=== PATIENT | female | born 1975 | race Caucasian/White ===

== ENCOUNTER 2017-05-03 14:15 | Observation (INO) | payer OTHER ==
[~2017-05-03] VITALS: Ht 165.1 cm; Wt 57.6 kg
[~2017-05-03 14:15] MED LIST: PARO1TAB27 PO; SULF800T23 PO
[2017-05-03] MEDS ORDERED: ASPIRIN 324 MG CHEW PO STA (14:34)
[2017-05-03] MEDS ORDERED: NITROGLYCERIN 2% OINTMENT 30GM TUBE EXT STA (14:34)
--- NOTE | 2017-05-03 14:40 | EMERGENCY ROOM VISIT NOTE ---
History First contact with patient: 14:21 Chief Complaint: CHEST PAIN Stated Complaint: TIGHTNESS IN CHEST, NASEAU Nursing Triage Summary: Pt presents with substernal cp into left arm since Fri. SOB with exertion. Denies lightheadedness. Denies cardiac hx. History of Present Illness The patient is a 42 year old female who presents to the Emergency Room with complaints of midsternal chest pain that has been intermittent for the last 5 days. The patient describes it as a "knot in the center of her chest." The patient also got short of breath while walking up a hill yesterday. She denies any history of cardiac disease. She does smoke approximately 1 pack per day. She does not take any control pills. No recent long travel. The patient' s otherwise been healthy. She denies any cough. She has had intermittent nausea. Patient also has a history of a panic disorder. She is uncertain if her symptoms are related to that. Her father had a heart attack at the age of 41. Review of Systems 10 system review performed and negative unless noted in HPI or below Past Medical/Surgical History Medical Problems: (1) Chest pain (2) Hypokalemia (3) Miscarriage (4) Shortness of breath (5) Shortness of breath Surgical Problems: (1) H/O tubal ligation Family History FH: breast cancer FH: colon cancer FH: coronary artery bypass surgery FH: diabetes mellitus FH: leukemia Social History Smoking Status: Current Every Day Smoker Alcohol Use: none Marital Status: single Occupation Status: unemployed Current/Historical Medications Scheduled Aspirin (Aspirin Ec), 81 MG PO DAILY Buspirone Hcl (Buspirone Hcl), 10 MG PO BID Hydroxyzine Pamoate (Vistaril), 25 MG PO HS Ibuprofen (Advil), 400 MG PO prn ud Levothyroxine Sodium (Synthroid), 125 MCG PO DAILY Paroxetine (Paxil), 30 MG PO DAILY Scheduled PRN Cyclobenzaprine Hcl (Flexeril), 10 MG PO HS PRN for SPASMS Indomethacin (Indocin), 50 MG PO TID PRN for Pain Ondansetron Hcl (Zofran), 8 MG PO Q8 PRN for Nausea Physical Exam Vital Signs Date Time Temp Pulse Resp B/P (MAP) Pulse Ox O2 Delivery O2 Flow Rate FiO2 05/03/17 16:21 86 16 125/83 97 Room Air 05/03/17 15:17 101 16 134/97 98 Room Air 05/03/17 15:05 89 05/03/17 14:18 36.9 110 18 165/103 99 Room Air Physical Exam VITALS: Vitals are noted on the nurse's note and reviewed by myself. Vital signs stable. GENERAL: 42-year-old female, in no acute distress, nondiaphoretic, well- developed well-nourished. SKIN: The skin was without rashes, erythema, edema, or bruising. HEAD: Normocephalic atraumatic. MOUTH: Mucous membranes moist. NECK: Supple without nuchal rigidity. No lymphadenopathy. Cervical spine is nontender. No JVD. HEART: Regular rate and rhythm without murmurs gallops or rubs. No tenderness over the thorax LUNGS: Clear to auscultation bilaterally without wheezes, rales or rhonchi. No accessory muscle use. ABDOMEN: Positive bowel sounds x 4.Soft, nontender, without organomegaly. No guarding or rebound tenderness. MUSCULOSKELETAL: No muscle atrophy, erythema, or edema noted. . Strength 5/5 throughout. NEURO: Patient was alert and oriented to person place and time. Normal sensation to touch. No focal neurological deficits. Medical Decision & Procedures ER Provider Diagnostic Interpretation: cxr IMPRESSION: No acute process. The above report was generated using voice recognition software. It may contain grammatical, syntax or spelling errors. Electronically signed by: Ld Campbell M.D. 05/03/2017 2:55 PM Dictated Date/Time: 05/03/2017 2:54 PM The status of this report is Signed. Draft = Not yet reviewed or approved by Radiologist. Signed = Reviewed and approved by Radiologist. Laboratory Results 05/03/17 14:30 Red Blood Count 4.59, Mean Corpuscular Volume 91.3, Mean Corpuscular Hemoglobin 30.9, Mean Corpuscular Hemoglobin Concent 33.9, Mean Platelet Volume 9.5, Neutrophils (%) (Auto) 74.2, Lymphocytes (%) (Auto) 17.8, Monocytes (%) (Auto) 5.9, Eosinophils (%) (Auto) 1.2, Basophils (%) (Auto) 0.5, Neutrophils # (Auto) 8.44, Lymphocytes # (Auto) 2.02, Monocytes # (Auto) 0.67, Eosinophils # (Auto) 0.14, Basophils # (Auto) 0.06 05/03/17 14:30 Test 05/03/17 14:30 05/03/17 14:34 05/03/17 14:45 05/03/17 15:45 White Blood Count 11.37 K/uL (4.8-10.8) Red Blood Count 4.59 M/uL (4.2-5.4) Hemoglobin 14.2 g/dL (12.0-16.0) Hematocrit 41.9 % (37-47) Mean Corpuscular Volume 91.3 fL (80-100) Mean Corpuscular Hemoglobin 30.9 pg (25-34) Mean Corpuscular Hemoglobin Concent 33.9 g/dl (32-36) Platelet Count 290 K/uL (130-400) Mean Platelet Volume 9.5 fL (7.4-10.4) Neutrophils (%) (Auto) 74.2 % Lymphocytes (%) (Auto) 17.8 % Monocytes (%) (Auto) 5.9 % Eosinophils (%) (Auto) 1.2 % Basophils (%) (Auto) 0.5 % Neutrophils # (Auto) 8.44 K/uL (1.4-6.5) Lymphocytes # (Auto) 2.02 K/uL (1.2-3.4) Monocytes # (Auto) 0.67 K/uL (0.11-0.59) Eosinophils # (Auto) 0.14 K/uL (0-0.5) Basophils # (Auto) 0.06 K/uL (0-0.2) RDW Standard Deviation 44.4 fL (36.4-46.3) RDW Coefficient of Variation 13.3 % (11.5-14.5) Immature Granulocyte % (Auto) 0.4 % Immature Granulocyte # (Auto) 0.04 K/uL (0.00-0.02) D-Dimer 290 ug/L FEU (0-500) Anion Gap 6.0 mmol/L (3-11) Est Creatinine Clear Calc Drug Dose 102.0 ml/min Estimated GFR () 126.7 Estimated GFR (Non- 109.3 BUN/Creatinine Ratio 11.1 (10-20) Calcium Level 9.1 mg/dl (8.5-10.1) Total Bilirubin 0.2 mg/dl (0.2-1) Aspartate Amino Transf (AST/SGOT) 11 U/L (15-37) Alanine Aminotransferase (ALT/SGPT) 18 U/L (12-78) Alkaline Phosphatase 87 U/L (45-117) Creatine Kinase MB < 0.5 ng/ml (0.5-3.6) Total Protein 8.2 gm/dl (6.4-8.2) Albumin 4.2 gm/dl (3.4-5.0) Globulin 4.0 gm/dl (2.5-4.0) Albumin/Globulin Ratio 1.0 (0.9-2) Thyroid Stimulating Hormone (TSH) 49.300 uIu/ml (0.300-4.500) Creatine Kinase MB Ratio (0-3.0) Urine Test NEG (NEG) Troponin I < 0.015 ng/ml (0-0.045) Medications Administered Medications (Trade) Dose Ordered Sig/Raya Route Start Time Stop Time Status Last Admin Dose Admin Nitroglycerin (Nitroglycerin 2% Oint) 1 inch ONE STAT EXT 05/03/17 14:34 05/03/17 14:37 DC 05/03/17 14:42 1 INCH Aspirin (Aspirin Chew) 324 mg NOW STAT PO 05/03/17 14:34 05/03/17 14:37 DC 05/03/17 14:42 324 MG Sodium Chloride 1,000 ml @ 999 mls/hr Q1H1M ONCE IV 05/03/17 15:45 05/03/17 16:45 DC 05/03/17 15:45 999 MLS/HR Potassium Chloride (Klor-Con M10) 40 meq NOW STAT PO 05/03/17 15:41 05/03/17 15:42 DC 05/03/17 15:41 40 MEQ ECG Per My Interpretation Indication: chest pain Rate (beats per minute): 103 Rhythm: sinus tachycardia ED Course Patient was seen and examined Vital signs including blood pressure were reviewed medications list was verified with patient Labs were obtained, and a saline lock was established The patient was given aspirin 324 mg by mouth. She was also given Nitropaste Imaging was performed and reviewed The patient was reassessed. The pain was unchanged. We discussed her workup. She voiced understanding. Case was also discussed with my supervising physician who is in agreement with my plan. I discussed the case with the outpatient case manager. It was then discussed with the [facility] hospitalist group, who agreed to observe the patient for further workup and treatment.. Medical Decision Differential diagnosis: Acute myocardial infarction, cardiac arrhythmia, anemia , thyroid abnormality, pneumothorax, pneumonia, bronchitis, pericarditis, electrolyte imbalance This patient is a 42-year-old female presents to the emergency department with dyspnea on exertion and chest pain. The patient does have risk factors including a family history and cigarette smoking in the emergency department, her troponin was negative. An EKG was performed. It shows sinus tachycardia. No signs of ischemia or infarction. Her d-dimer is negative. A PE is highly unlikely. The patient does have significant risk factors for cardiac disease; for this reason, the hospitalist service was consulted. She will be observed overnight for further workup and treatment This chart was completed in part utilizing [employer] Speech Voice Recognition software. Attempts were made to minimize the grammatical errors, random word insertions, pronoun errors and incomplete sentences. Any formal questions or concerns about the content, text or information contained within the body of this dictation should be directly addressed to the provider for clarification. Medication Reconcilliation Current Medication List: was personally reviewed by me Blood Pressure Screening Patient's blood pressure: Elevated blood pressure Blood pressure disposition: Did not require urgent referral Consults Consulting Physician: [facility] hospitalist Impression Primary Impression: Chest pain Departure Information Referrals Patricia Lua (PCP) Patient Instructions My [facility]
[2017-05-03 14:48] LABS: BASO % 0.5 %; BASO ABS # 0.06 K/uL (0-0.2); EOS % 1.2 %; EOS ABS # 0.14 K/uL (0-0.5); HEMATOCRIT 41.9 % (37-47); HEMOGLOBIN 14.2 g/dL (12.0-16.0); IG# 0.04 K/uL (0.00-0.02); LYMPH % 17.8 %; LYMPH ABS # 2.02 K/uL (1.2-3.4); MEAN CELL VOLUME 91.3 fL (80-100); MEAN CORPUSCULAR HEMOGLOBIN 30.9 pg (25-34); MEAN CORPUSCULAR HGB CONC 33.9 g/dl (32-36); MEAN PLATELET VOLUME 9.5 fL (7.4-10.4); MONO % 5.9 %; MONO ABS # 0.67 K/uL (0.11-0.59); NEUT % 74.2 %; NEUT ABS # 8.44 K/uL (1.4-6.5); PLATELET COUNT 290 K/uL (130-400); RED CELL DISTRIBUTION WIDTH CV 13.3 % (11.5-14.5); RED CELL DISTRIBUTION WIDTH SD 44.4 fL (36.4-46.3); WHITE BLOOD COUNT 11.37 K/uL (4.8-10.8)
--- NOTE | 2017-05-03 14:56 | DIAGNOSTIC IMAGING REPORT ---
CHEST ONE VIEW PORTABLE HISTORY: 42 years-old Female midsternal CP acute atypical chest pain, most pronounced within the mid sternal region COMPARISON: Chest radiograph 01/04/2013 TECHNIQUE: Portable AP view of the chest FINDINGS: Cardiomediastinal and hilar silhouettes are within normal limits. There is no pneumothorax, pleural effusion, focal airspace consolidation or overt pulmonary edema. Bones of the chest appear grossly intact. IMPRESSION: No acute process. The above report was generated using voice recognition software. It may contain grammatical, syntax or spelling errors. Electronically signed by: Ld Campbell M.D. 05/03/2017 2:55 PM Dictated Date/Time: 05/03/2017 2:54 PM
[2017-05-03 14:58] LABS: ALBUMIN 4.2 gm/dl (3.4-5.0); ALT/SGPT 18 U/L (12-78); BLOOD UREA NITROGEN 7 mg/dl (7-18); CALCIUM 9.1 mg/dl (8.5-10.1); CARBON DIOXIDE 27 mmol/L (21-32); CREATININE 0.64 mg/dl (0.60-1.20); GLUCOSE 105 mg/dl (70-99); POTASSIUM 3.1 mmol/L (3.5-5.1); SODIUM 139 mmol/L (136-145)
[2017-05-03 15:09] LABS: ALKALINE PHOSPHATASE 87 U/L (45-117); AST/SGOT 11 U/L (15-37); CKMB < 0.5 ng/ml (0.5-3.6); TOTAL PROTEIN 8.2 gm/dl (6.4-8.2)
[2017-05-03] MEDS ORDERED: POTASSIUM CHLORIDE 10 MEQ TABCR PO STA (15:41)
[2017-05-03] MEDS ORDERED: SODIUM CHLORIDE 0.9% 1000ML 1,000 ML IV ONE (15:45)
[2017-05-03] MEDS ORDERED: ASPI81TA28 PO (15:46)
[2017-05-03] MEDS ORDERED: PARO1TAB27 PO (15:46)
[2017-05-03] MEDS ORDERED: IBUP-1050 PO (15:46)
[2017-05-03] MEDS ORDERED: BUSP-8 PO (15:46)
[2017-05-03] MEDS ORDERED: LEVO125T72 PO (15:46)
[2017-05-03] MEDS ORDERED: NITROGLYCERIN 0.4 MG SL PER TAB CHARGE SL PRN (17:30)
[2017-05-03] MEDS ORDERED: ONDANSETRON INJ 2 MG/ML 2 ML VIAL IV PRN (17:30)
[2017-05-03] MEDS ORDERED: ACETAMINOPHEN 325 MG TAB PO PRN (17:30)
[2017-05-03] MEDS ORDERED: IV FLUIDS COMPLETED PRN (18:00)
[2017-05-03 18:10] VITALS: O2SAT 95; Ht 165.1 cm; Wt 57.6 kg
[2017-05-03 18:34] VITALS: BP 136/92; PULSE 84; TEMP 37; O2SAT 99
[2017-05-03 18:41] VITALS: O2SAT 98
--- NOTE | 2017-05-03 18:52 | History and Physical ---
History & Physical Date & Time of Service: May 03, 2017 ~ 17:00 Chief Complaint: Chest Tightness, Shortness of Breath Primary Care Physician: Patricia Lua History of Present Illness 42 year old female who presents to the ED with chest tightness and shortness of breath. Patient reports her symptoms began 6 days ago. Initially she was experiencing intermittent chest tightness. She denies any specific causative or alleviating factors. Yesterday while walking up a slight incline she became short of breath and had chest tightness. Symptoms persisted until today. She also had associated nausea. She denies diaphoresis and lightheadedness. She reports her symptoms are very similar to when she has a panic attack. She received topical nitro in the ED and does not think it made her feel any better but is currently symptom free. Patient is on levothyroxine and has self reduced / stopped this medication recently. She also self decreased her paroxetine dose because she felt like it was making her angry and irritable. She reports she otherwise has been feeling well recently. No abdominal pain, vomiting, or diarrhea. She denies fever and chills. No urinary symptoms. In the ED, initial troponin is negative and EKG does not show any acute ST changes. TSH is 49.0. Past Medical/Surgical History Medical Problems: (1) Anxiety Status: Chronic (2) Hypothyroidism Status: Chronic (3) Miscarriage Status: Resolved Surgical Problems: (1) H/O dilation and curettage Status: Chronic (2) H/O tubal ligation Status: Resolved (3) H/O tubal ligation Status: Chronic Family History FH: CAD (coronary artery disease) FATHER (NE at age 41 and CABG x 3) FH: breast cancer MOTHER ( at age 42) Social History Smoking Status: Current Every Day Smoker Alcohol Use: none Immunizations History of Influenza Vaccine: Yes Influenza Vaccine Date: Dec 09, 2016 History of Tetanus Vaccine?: Yes Tetanus Immunization Date: Oct 25, 2005 Allergies Coded Allergies: Tramadol (Verified Allergy, Mild, itching, 12/27/12) Gabapentin (Verified Adverse Reaction, Intermediate, " DEPRESSION", ) Home Medications Scheduled Buspirone Hcl (Buspirone Hcl), 10 MG PO BID Levothyroxine Sodium (Synthroid), 125 MCG PO DAILY Paroxetine (Paxil), 20 MG PO DAILY Scheduled PRN Cyclobenzaprine Hcl (Flexeril), 10 MG PO HS PRN for SPASMS Hydroxyzine Pamoate (Vistaril), 25 MG PO HS PRN for Insomnia Indomethacin (Indocin), 50 MG PO TID PRN for Pain Ondansetron Hcl (Zofran), 8 MG PO Q8 PRN for Nausea Miscellaneous Medications Ibuprofen (Advil), 400 MG PO Review of Systems ROS per HPI, all other systems reviewed and negative Physical Exam Vital Signs Date Time Temp Pulse Resp B/P (MAP) Pulse Ox O2 Delivery O2 Flow Rate FiO2 05/03/17 18:34 37.0 84 16 136/92 (107) 99 Room Air 05/03/17 18:10 95 Room Air 05/03/17 17:42 92 16 95 Room Air 05/03/17 16:21 86 16 125/83 97 Room Air 05/03/17 15:17 101 16 134/97 98 Room Air 05/03/17 15:05 89 05/03/17 14:18 36.9 110 18 165/103 99 Room Air General Appearance: WD/WN, no apparent distress Head: normocephalic, atraumatic Eyes: normal inspection, EOMI, sclerae normal ENT: hearing grossly normal, + pertinent finding (mucous membranes moist) Neck: supple, no JVD, trachea midline Respiratory/Chest: lungs clear, normal breath sounds, no respiratory distress Cardiovascular: regular rate, rhythm, no edema, normal peripheral pulses Abdomen/GI: normal bowel sounds, non tender, soft, no organomegaly Extremities/Musculoskelatal: normal inspection, no calf tenderness, normal capillary refill Neurologic/Psych: no motor/sensory deficits, alert, normal mood/affect, oriented x 3 Skin: normal color, warm/dry Diagnostics Laboratory Results Results Past 24 Hours Test 05/03/17 14:30 05/03/17 14:34 05/03/17 14:45 05/03/17 15:45 Range/Units White Blood Count 11.37 4.8-10.8 K/uL Red Blood Count 4.59 4.2-5.4 M/uL Hemoglobin 14.2 12.0-16.0 g/dL Hematocrit 41.9 37-47 % Mean Corpuscular Volume 91.3 80-100 fL Mean Corpuscular Hemoglobin 30.9 25-34 pg Mean Corpuscular Hemoglobin Concent 33.9 32-36 g/dl Platelet Count 290 130-400 K/uL Mean Platelet Volume 9.5 7.4-10.4 fL Neutrophils (%) (Auto) 74.2 % Lymphocytes (%) (Auto) 17.8 % Monocytes (%) (Auto) 5.9 % Eosinophils (%) (Auto) 1.2 % Basophils (%) (Auto) 0.5 % Neutrophils # (Auto) 8.44 1.4-6.5 K/uL Lymphocytes # (Auto) 2.02 1.2-3.4 K/uL Monocytes # (Auto) 0.67 0.11-0.59 K/uL Eosinophils # (Auto) 0.14 0-0.5 K/uL Basophils # (Auto) 0.06 0-0.2 K/uL RDW Standard Deviation 44.4 36.4-46.3 fL RDW Coefficient of Variation 13.3 11.5-14.5 % Immature Granulocyte % (Auto) 0.4 % Immature Granulocyte # (Auto) 0.04 0.00-0.02 K/uL D-Dimer 290 0-500 ug/L FEU Sodium Level 139 136-145 mmol/L Potassium Level 3.1 3.5-5.1 mmol/L Chloride Level 105 98-107 mmol/L Carbon Dioxide Level 27 21-32 mmol/L Anion Gap 6.0 3-11 mmol/L Blood Urea Nitrogen 7 7-18 mg/dl Creatinine 0.64 0.60-1.20 mg/dl Est Creatinine Clear Calc Drug Dose 102.0 ml/min Estimated GFR () 126.7 Estimated GFR (Non- 109.3 BUN/Creatinine Ratio 11.1 10-20 Random Glucose 105 70-99 mg/dl Calcium Level 9.1 8.5-10.1 mg/dl Magnesium Level 2.2 1.8-2.4 mg/dl Total Bilirubin 0.2 0.2-1 mg/dl Aspartate Amino Transf (AST/SGOT) 11 15-37 U/L Alanine Aminotransferase (ALT/SGPT) 18 12-78 U/L Alkaline Phosphatase 87 45-117 U/L Creatine Kinase MB < 0.5 0.5-3.6 ng/ml Troponin I < 0.015 < 0.015 0-0.045 ng/ml Total Protein 8.2 6.4-8.2 gm/dl Albumin 4.2 3.4-5.0 gm/dl Globulin 4.0 2.5-4.0 gm/dl Albumin/Globulin Ratio 1.0 0.9-2 Thyroid Stimulating Hormone (TSH) 49.300 0.300-4.500 uIu/ml Creatine Kinase MB Ratio 0-3.0 Urine Test NEG NEG Diagnostic Radiology CXR IMPRESSION: No acute process. Impression Assessment and Plan CHEST PAIN - admit to tele - patient presenting with chest tightness and exertional shortness of breath x 6 days; symptoms currently resolved - in the ED, initial troponin negative and EKG without acute ST changes - risk factors: + family history, smoker - check lipids in AM - suspect symptoms are due to anxiety but given risk factors will r/o ACS - continue to cycle cardiac enzymes and if negative, stress test in AM - s/p full dose ASA in the ED, will continue with 81mg daily - PRN nitro and EKG with further chest pain HYPOTHYROIDISM - patient non compliant with levothyroxine - TSH 49 - resume levothyroxine, outpatient follow up labs ANXIETY - patient self reduced paroxetine - continue paroxetine and BuSpar - outpatient follow up DVT PROPHYLAXIS - SCDs DISPO - The patient will be placed as observation status for now until further work up is complete. Advanced Directives Existing Living Will: No Existing Power of Recreation Assistant: No Resuscitation Status VTE Prophylaxis Will order VTE Prophylaxis: Yes Note ATTENDING ADDENDUM Record reviewed. Patient interviewed and examined. Care coordinated with OSWALD Jorgensen. Please refer to her documentation for patient's history. Briefly, 42-year-old female with history of hypothyroidism and depression. Smoker. Stop taking her medications recently. Experiencing chest pain dyspnea on exertion. EXAM: General- no distress Neck-no thyromegaly Lungs- clear to auscultation; no respiratory distress Cardiovascular- RRR; no murmur; no gallop; no JVD; no pretibial edema Abdomen- + bowel sounds, soft, nontender Extremities- no cyanosis; no calf tenderness Neuro- alert, oriented Skin- warm & dry . DATA: Troponin less than 0.015. Potassium 3.1. TSH 49.3. D-dimer normal. Other lab studies as noted. Chest x-ray did not show any infiltrates, effusions, CHF. EKG performed at 1422 reviewed and demonstrated sinus tachycardia at 103/minute , no acute changes. EKG performed at 1631 reviewed and demonstrated sinus rhythm at 83/minute, no acute changes. ASSESSMENT AND PLAN: 42-year-old female with exertional chest pain and dyspnea. Troponin normal. No EKG changes. Check serial troponins. Tentative treadmill stress echo in the morning if acute NE is ruled out. Consider outpatient point function testing if patient continues to experience symptoms. Patient is a smoker. Smoking cessation counseling. History of hypothyroidism; recently stopped taking levothyroxine. TSH 49.3. Resume levothyroxine. Follow and titrate therapy. Please refer to ADAM Leslie's documentation for discussion of other issues. Cornell Moise MD .
[2017-05-03] MEDS ORDERED: LEVOTHYROXINE 125 MCG TAB PO ONE (19:00)
[2017-05-03 19:32] VITALS: BP 129/75; PULSE 79; TEMP 36.8; O2SAT 98
[2017-05-03] MEDS ORDERED: ONDA4TAB46 PO (22:14)
[2017-05-03] MEDS ORDERED: CYCL10TA6 PO (22:17)
[2017-05-03] MEDS ORDERED: INDO-24 PO (22:18)
[2017-05-03] MEDS ORDERED: HYDR25CA PO (22:19)
[2017-05-03 23:05] VITALS: BP 125/84; PULSE 78; TEMP 36.6; O2SAT 96
[2017-05-04 02:58] LABS: HEMATOCRIT 40.6 % (37-47); HEMOGLOBIN 13.8 g/dL (12.0-16.0); MEAN CELL VOLUME 91.2 fL (80-100); MEAN PLATELET VOLUME 9.8 fL (7.4-10.4); PLATELET COUNT 251 K/uL (130-400); RED CELL DISTRIBUTION WIDTH CV 13.3 % (11.5-14.5); RED CELL DISTRIBUTION WIDTH SD 44.2 fL (36.4-46.3); WHITE BLOOD COUNT 8.66 K/uL (4.8-10.8)
[2017-05-04 03:22] LABS: CALCIUM 8.5 mg/dl (8.5-10.1); CREATININE 0.48 mg/dl (0.60-1.20); POTASSIUM 3.8 mmol/L (3.5-5.1)
[2017-05-04 04:05] VITALS: BP 121/81; PULSE 71; TEMP 36.6; O2SAT 96
[2017-05-04] MEDS ORDERED: LEVOTHYROXINE 125 MCG TAB PO SCH (06:00)
[2017-05-04 08:08] VITALS: BP 111/70; PULSE 79; TEMP 36.8; O2SAT 95
[2017-05-04] MEDS ORDERED: PAROXETINE 20 MG TAB PO SCH (09:00)
[2017-05-04] MEDS ORDERED: ASPIRIN 81 MG ECTAB PO SCH (09:00)
[2017-05-04 11:28] VITALS: BP 113/79; PULSE 78; TEMP 36.6; O2SAT 98
[2017-05-04] MEDS ORDERED: LEVA45AE INH (12:24)
--- NOTE | 2017-05-04 12:42 | Discharge Summary ---
Discharge Summary Date of Service May 04, 2017. Discharge Summary Admission Date: May 03, 2017 at 17:25 Discharge Date: May 04, 2017 Discharge Disposition: Home Principal Diagnosis: CHEST PAIN, ACS RULED OUT possible ASTHMATIC ATTACK Secondary Diagnoses/Problems: PLEASE REFER TO HOSPITAL COURSE BELOW. Procedures: * STRESS STUDY: Normal exercise stress echocardiogram. No echocardiographic or ECG evidence of myocardial ischemia having achieved heart rate adequate for diagnostic purposes. * -- Conclusions -- * The left ventricle is normal in size. * Left ventricular systolic function is normal. * Ejection Fraction = 55-60%. * The right ventricular systolic function is normal. * The left atrial size is normal. * Right atrial size is normal. * No significant valvular pathology. CHEST ONE VIEW PORTABLE HISTORY: 42 years-old Female midsternal CP acute atypical chest pain, most pronounced within the mid sternal region COMPARISON: Chest radiograph 01/04/2013 TECHNIQUE: Portable AP view of the chest FINDINGS: Cardiomediastinal and hilar silhouettes are within normal limits. There is no pneumothorax, pleural effusion, focal airspace consolidation or overt pulmonary edema. Bones of the chest appear grossly intact. IMPRESSION: No acute process. Pending Studies/Follow-Up: PLEASE REFER TO HOSPITAL COURSE BELOW. Medication Reconciliation New Medications: Levalbuterol Tartrate (Levalbuterol Tartrate Hfa) 45 Mcg/Act Aer 2 PUFFS INH Q4H PRN for Shortness of Breath for 30 Days, #1 INHA 2 Refills Continued Medications: Buspirone Hcl (Buspirone Hcl) 10 Mg Tab 10 MG PO BID, TAB Cyclobenzaprine Hcl (Flexeril) 10 Mg Tab 10 MG PO HS PRN for SPASMS, #21 TAB Hydroxyzine Pamoate (Vistaril) 25 Mg Cap 25 MG PO HS PRN for Insomnia for 30 Days, CAP 1 Refill Ibuprofen (Advil) 200 Mg Tab 400 MG PO, TAB Indomethacin (Indocin) 50 Mg Cap 50 MG PO TID PRN for Pain, #20 CAP WITH FOOD UNTIL PAIN RESOLVES Levothyroxine Sodium (Synthroid) 125 Mcg Tab 125 MCG PO DAILY, TAB Ondansetron Hcl (Zofran) 4 Mg Tab 8 MG PO Q8 PRN for Nausea, TAB Paroxetine (Paxil) 20 Mg Tab 20 MG PO DAILY, TAB Admission Information HPI (per Admitting provider): 42 year old female who presents to the ED with chest tightness and shortness of breath. Patient reports her symptoms began 6 days ago. Initially she was experiencing intermittent chest tightness. She denies any specific causative or alleviating factors. Yesterday while walking up a slight incline she became short of breath and had chest tightness. Symptoms persisted until today. She also had associated nausea. She denies diaphoresis and lightheadedness. She reports her symptoms are very similar to when she has a panic attack. She received topical nitro in the ED and does not think it made her feel any better but is currently symptom free. Patient is on levothyroxine and has self reduced / stopped this medication recently. She also self decreased her paroxetine dose because she felt like it was making her angry and irritable. She reports she otherwise has been feeling well recently. No abdominal pain, vomiting, or diarrhea. She denies fever and chills. No urinary symptoms. In the ED, initial troponin is negative and EKG does not show any acute ST changes. TSH is 49.0. Physical Exam (per Admitting): General Appearance: WD/WN, no apparent distress Head: normocephalic, atraumatic Eyes: normal inspection, EOMI, sclerae normal ENT: hearing grossly normal, + pertinent finding (mucous membranes moist) Neck: supple, no JVD, trachea midline Respiratory/Chest: lungs clear, normal breath sounds, no respiratory distress Cardiovascular: regular rate, rhythm, no edema, normal peripheral pulses Abdomen/GI: normal bowel sounds, non tender, soft, no organomegaly Extremities/Musculoskelatal: normal inspection, no calf tenderness, normal capillary refill Neurologic/Psych: no motor/sensory deficits, alert, normal mood/affect, oriented x 3 Skin: normal color, warm/dry Hospital Course CHEST PAIN, ACS RULED OUT possible ASTHMATIC ATTACK - Stress test negative D dimer negative CXR unremarkable - prescribed with PRN Xopenex outpatient PFTs - ff up with PCP in 3-5 days HYPOTHYROIDISM - TSH 49 - advised to take Lthyroxine consistently - repeat TFTs in 4 weeks ANXIETY - resume medications outpatient ff up SMOKING - advised cessation ff up with PCP in 3-5 days Total time spent on discharge = This includes examination of the patient, discharge planning, medication reconciliation, and communication with other providers. Discharge Instructions Discharge Instructions Date of Service May 04, 2017. Admission Reason for Admission: Chest Pain Discharge Discharge Diagnosis / Problem: ATYPICAL CHEST PAIN Discharge Goals Goal(s): Diagnostic testing, Therapeutic intervention Activity Recommendations Activity Limitations: as noted below (NO HEAVY EXERTION UNTIL RE-EVALUATED BY PRIMARY CARE PHYSICIAN) Lifting Limitations: until after follow-up appointment Exercise/Sports Limitations: until after follow-up appointment . Instructions / Follow-Up Instructions / Follow-Up PLEASE REVIEW YOUR NEW MEDICATION LIST AND FOLLOW INSTRUCTIONS CAREFULLY. ALWAYS TAKE YOUR MEDICATIONS PRESCRIBED. CALL PRIMARY CARE PHYSICIAN OR RETURN TO ER IMMEDIATELY IF WITH RECURRENCE OF SYMPTOMS, INCREASING CHEST DISCOMFORT, SHORTNESS OF BREATH, COUGH, FEVER/CHILLS, WEAKNESS. STRONGLY RECOMMEND SMOKING CESSATION. FOLLOW UP WITH PRIMARY CARE PROVIDER ON MONDAY SCHEDULED. Current Hospital Diet Patient's current hospital diet: AHA Diet (Heart Healthy) Discharge Diet Recommended Diet: AHA Diet (Heart Healthy) Procedures Procedures Performed: STRESS TEST Pending Studies Studies pending at discharge: yes List of pending studies: REPEAT THYROID FUNCTION TEST IN 1 MONTH Laboratory Results Lipid Panel Test 05/04/17 02:40 Range/Units Triglycerides Level 104 0-150 mg/dl Cholesterol Level 158 0-200 mg/dl HDL Cholesterol 33 mg/dl Cholesterol/HDL Ratio 4.8 LDL Cholesterol, Calculated 104 mg/dl Medical Emergencies . Who to Call and When: Medical Emergencies: If at any time you feel your situation is an emergency, please call 911 immediately. . Non-Emergent Contact Non-Emergency issues call your: Primary Care Provider Call Non-Emergent contact if: you have a fever, your pain is not controlled, your pain is worsening, you have any medication questions . . "Provider Documentation" section prepared by Rj Fierro. .
[2017-05-04 12:57] VITALS: BP 113/79; PULSE 78; TEMP 36.6; O2SAT 98
--- NOTE | 2017-05-04 14:27 | EXERCISE STRESS ECHO ---
*NOTICE TO RECEIVING CONSTITUTION PARTY AGENCY This information is strictly Confidential and protected under [place] law. [place] law prohibits you from making any further disclosure of this information unless further disclosure is expressly permitted by the written consent of the person to whom it pertains or is authorized by law. A general authorization for the release of medical or other information is not sufficient for this purpose. Hospital accepts no responsibility if the information is made available to any other person, INCLUDING THE PATIENT. Interpretation Summary * Name: VAUGHN SALDIVAR Study Date: 05/04/2017 08:50 AM BP: 112/77 mmHg * Patient Location: C.2T\S\E222\S\1 HR: 90 * : 1975 (M/d/yyyy) Gender: Female Height: 65 in * Age: 42 yrs Ethnicity: [place] Weight: 127 lb * Ordering Physician: Enedina Leslie * Referring Physician: Self, Referred * Performed By: Karon Brewer RDCS * * Reason For Study: Chest pain * BSA: 1.6 m2 * STRESS STUDY: Normal exercise stress echocardiogram. No echocardiographic or ECG evidence of myocardial ischemia having achieved heart rate adequate for diagnostic purposes. * -- Conclusions -- * The left ventricle is normal in size. * Left ventricular systolic function is normal. * Ejection Fraction = 55-60%. * The right ventricular systolic function is normal. * The left atrial size is normal. * Right atrial size is normal. * No significant valvular pathology. * STRESS STUDY: Normal exercise stress echocardiogram. No echocardiographic or ECG evidence of myocardial ischemia having achieved heart rate adequate for diagnostic purposes. Procedure Details * ECHOEX, CPT #[id number] * ECHO DOPPLER, CPT #[id number] * ECHO COLOR FLOW, CPT #[id number] Left Ventricle * The left ventricle is normal in size. * There is normal left ventricular wall thickness. * Ejection Fraction = 55-60%. * Left ventricular systolic function is normal. * The left ventricular wall motion is normal. Right Ventricle * The right ventricle is normal size. * The right ventricular systolic function is normal. Atria * The left atrial size is normal. * Right atrial size is normal. * The interatrial septum is intact with no evidence for an atrial septal defect. Mitral Valve * The mitral valve anatomy is normal. * Significant mitral regurgitation is absent. Tricuspid Valve * The tricuspid valve anatomy is normal. * Significant tricuspid regurgitation is absent. Aortic Valve * The aortic valve is tricuspid. The leaflet thickness if normal. There is no aortic stenosis, and no significant insufficiency. * No hemodynamically significant valvular aortic stenosis. * There is no significant aortic regurgitation. Pulmonic Valve * The pulmonic valve is not well visualized. Great Vessels * The aortic root and proximal ascending aorta are normal sized. Pericardium * There is no pericardial effusion. Stress Parameters * Normal baseline electrocardiogram. * The stress ECG response was normal * Stress ECG: No ST changes. No arrhythmias. * The stress portion of this study was personally supervised by the undersigned interpreting physician. * Rest heart rate was '90' BPM. * Rest blood pressure was '112/77' * Maximum heart rate achieved was 157 bpm. * Maximum heart rate was 88 % of maximum age-predicted heart rate. * Maximum blood pressure was '148/82' * Total exercise time was '9:27' * Maximum exercise MET level achieved was '10.70' METS * Maximum treadmill speed was '4.10' miles per hour. * Maximum treadmill elevation was '16.00'% grade. * Exercise was terminated due to 'achieving target heart rate' MMode 2D Measurements and Calculations IVSd 0.70 cm LVIDd 4.3 cm LVIDs 3.1 cm LVPWd 1.0 cm IVS/LVPW 0.68 FS 28.8 % EDV(Teich) 84.8 ml ESV(Teich) 37.7 ml EF(Teich) 55.6 % EDV(cubed) 81.7 ml ESV(cubed) 29.5 ml EF(cubed) 63.8 % LV mass(C)d 117.2 grams LV mass(C)dI 71.8 grams/m\S\2 SV(Teich) 47.2 ml SI(Teich) 28.9 ml/m\S\2 SV(cubed) 52.1 ml SI(cubed) 32.0 ml/m\S\2 Ao root diam 2.7 cm Ao root area 5.6 cm\S\2 ACS 2.1 cm LA dimension 2.6 cm asc Aorta Diam 2.9 cm LA/Ao 0.98 LVOT diam 1.9 cm LVOT area 3.0 cm\S\2 LVAd ap4 24.5 cm\S\2 LVLd ap4 7.2 cm EDV(MOD-sp4) 71.3 ml EDV(sp4-el) 71.1 ml LVAs ap4 14.8 cm\S\2 LVLs ap4 5.9 cm ESV(MOD-sp4) 31.8 ml ESV(sp4-el) 31.4 ml EF(MOD-sp4) 55.4 % EF(sp4-el) 55.8 % LVAd ap2 20.3 cm\S\2 LVLd ap2 6.7 cm EDV(MOD-sp2) 52.4 ml EDV(sp2-el) 52.0 ml LVAs ap2 12.2 cm\S\2 LVLs ap2 5.9 cm ESV(MOD-sp2) 23.3 ml ESV(sp2-el) 21.2 ml EF(MOD-sp2) 55.5 % EF(sp2-el) 59.2 % LVLd %diff -6.58 % EDV(MOD-bp) 62.5 ml LVLs %diff 0 % ESV(MOD-bp) 27.0 ml EF(MOD-bp) 56.7 % SV(MOD-sp4) 39.5 ml SI(MOD-sp4) 24.2 ml/m\S\2 SV(MOD-sp2) 29.1 ml SI(MOD-sp2) 17.8 ml/m\S\2 SV(MOD-bp) 35.4 ml SI(MOD-bp) 21.7 ml/m\S\2 SV(sp4-el) 39.7 ml SI(sp4-el) 24.3 ml/m\S\2 SV(sp2-el) 30.8 ml SI(sp2-el) 18.9 ml/m\S\2 Doppler Measurements and Calculations MV E max neema 70.8 cm/sec MV A max neema 69.4 cm/sec MV E/A 1.0 MV dec time 0.19 sec Ao V2 max 111.7 cm/sec Ao max PG 5.0 mmHg Ao max PG (full) 2.2 mmHg ETHAN(V,A) 2.2 cm\S\2 ETHAN(V,D) 2.2 cm\S\2 LV V1 max PG 2.8 mmHg LV V1 max 83.4 cm/sec PA V2 max 95.0 cm/sec PA max PG 3.6 mmHg PA acc slope 441.5 cm/sec\S\2 PA acc time 0.14 sec PA pr(Accel) 17.2 mmHg
--- NOTE | 2017-05-07 19:45 | Progress Note ---
Medicine Progress Note Date & Time of Visit: May 04, 2017 at 12:23. Subjective delayed entry date of service as noted above seen sitting up in bed, in good spirits states chest discomfort has resolved denies dyspnea no dyspepsia symptoms no other symptoms Objective Last 8 Hrs Date Time Temp Pulse Resp B/P (MAP) Pulse Ox O2 Delivery O2 Flow Rate FiO2 05/04/17 11:28 36.6 78 20 113/79 (90) 98 Room Air 05/04/17 08:08 36.8 79 20 111/70 (84) 95 Room Air 05/04/17 08:00 Room Air Physical Exam: General- oriented x 3, not in distress, speaks in sentences with no effort Head- atraumatic Eyes- anicteric ENT- oropharynx clear Neck- supple, no JVD, no adenopathy, no thyromegaly Lungs- clear to auscultation bilaterally Heart- regular rhythm; no murmur, normal rate Abdomen- normal bowel sounds, soft, nontender Extremities- no pretibial edema, no calf tenderness; peripheral pulses intact Neuro- alert, oriented x 3; no gross focal deficits Skin- warm & dry Laboratory Results: Last 24 Hours Test 05/03/17 14:30 05/03/17 14:34 05/03/17 14:45 05/03/17 15:45 White Blood Count 11.37 K/uL Red Blood Count 4.59 M/uL Hemoglobin 14.2 g/dL Hematocrit 41.9 % Mean Corpuscular Volume 91.3 fL Mean Corpuscular Hemoglobin 30.9 pg Mean Corpuscular Hemoglobin Concent 33.9 g/dl Platelet Count 290 K/uL Mean Platelet Volume 9.5 fL Neutrophils (%) (Auto) 74.2 % Lymphocytes (%) (Auto) 17.8 % Monocytes (%) (Auto) 5.9 % Eosinophils (%) (Auto) 1.2 % Basophils (%) (Auto) 0.5 % Neutrophils # (Auto) 8.44 K/uL Lymphocytes # (Auto) 2.02 K/uL Monocytes # (Auto) 0.67 K/uL Eosinophils # (Auto) 0.14 K/uL Basophils # (Auto) 0.06 K/uL RDW Standard Deviation 44.4 fL RDW Coefficient of Variation 13.3 % Immature Granulocyte % (Auto) 0.4 % Immature Granulocyte # (Auto) 0.04 K/uL D-Dimer 290 ug/L FEU Sodium Level 139 mmol/L Potassium Level 3.1 mmol/L Chloride Level 105 mmol/L Carbon Dioxide Level 27 mmol/L Anion Gap 6.0 mmol/L Blood Urea Nitrogen 7 mg/dl Creatinine 0.64 mg/dl Est Creatinine Clear Calc Drug Dose 102.0 ml/min Estimated GFR () 126.7 Estimated GFR (Non- 109.3 BUN/Creatinine Ratio 11.1 Random Glucose 105 mg/dl Calcium Level 9.1 mg/dl Magnesium Level 2.2 mg/dl Total Bilirubin 0.2 mg/dl Aspartate Amino Transf (AST/SGOT) 11 U/L Alanine Aminotransferase (ALT/SGPT) 18 U/L Alkaline Phosphatase 87 U/L Creatine Kinase MB < 0.5 ng/ml Troponin I < 0.015 ng/ml < 0.015 ng/ml Total Protein 8.2 gm/dl Albumin 4.2 gm/dl Globulin 4.0 gm/dl Albumin/Globulin Ratio 1.0 Thyroid Stimulating Hormone (TSH) 49.300 uIu/ml Creatine Kinase MB Ratio Urine Test NEG Test 05/03/17 21:07 05/04/17 02:40 Troponin I < 0.015 ng/ml White Blood Count 8.66 K/uL Red Blood Count 4.45 M/uL Hemoglobin 13.8 g/dL Hematocrit 40.6 % Mean Corpuscular Volume 91.2 fL Mean Corpuscular Hemoglobin 31.0 pg Mean Corpuscular Hemoglobin Concent 34.0 g/dl RDW Standard Deviation 44.2 fL RDW Coefficient of Variation 13.3 % Platelet Count 251 K/uL Mean Platelet Volume 9.8 fL Sodium Level 140 mmol/L Potassium Level 3.8 mmol/L Chloride Level 112 mmol/L Carbon Dioxide Level 23 mmol/L Anion Gap 5.0 mmol/L Blood Urea Nitrogen 8 mg/dl Creatinine 0.48 mg/dl Est Creatinine Clear Calc Drug Dose 136.0 ml/min Estimated GFR () 139.2 Estimated GFR (Non- 120.1 BUN/Creatinine Ratio 16.4 Random Glucose 88 mg/dl Calcium Level 8.5 mg/dl Triglycerides Level 104 mg/dl Cholesterol Level 158 mg/dl HDL Cholesterol 33 mg/dl LDL Cholesterol, Calculated 104 mg/dl VLDL Cholesterol, Calculated 21 mg/dl Cholesterol/HDL Ratio 4.8 Assessment & Plan CHEST PAIN, ACS RULED OUT possible ASTHMATIC ATTACK - Stress test negative D dimer negative CXR unremarkable - prescribed with PRN Xopenex outpatient PFTs - ff up with PCP in 3-5 days HYPOTHYROIDISM - TSH 49 - advised to take Lthyroxine consistently - repeat TFTs in 4 weeks ANXIETY - resume medications outpatient ff up SMOKING - advised cessation ff up with PCP in 3-5 days Current Inpatient Medications: Current Inpatient Medications Medications (Trade) Dose Ordered Sig/Raya Route Start Time Stop Time Status Last Admin Dose Admin Acetaminophen (Tylenol Tab) 650 mg Q4H PRN PO 05/03/17 17:30 06/02/17 17:29 05/03/17 19:23 650 MG Ondansetron HCl (Zofran Inj) 4 mg Q6H PRN IV 05/03/17 17:30 06/02/17 17:29 Nitroglycerin (Nitrostat Tab) 0.4 mg UD PRN SL 05/03/17 17:30 06/02/17 17:29 Aspirin (Ecotrin Tab) 81 mg QAM PO 05/04/17 09:00 06/03/17 08:59 05/04/17 08:11 81 MG Levothyroxine Sodium (Synthroid Tab) 125 mcg DAILYBB PO 05/04/17 06:00 06/03/17 05:59 05/04/17 05:44 125 MCG Paroxetine HCl (pAXil TAB) 20 mg DAILY PO 05/04/17 09:00 06/03/17 08:59 05/04/17 08:11 20 MG Buspirone HCl (Buspar Tab) 10 mg BID PO 05/03/17 21:00 06/02/17 20:59 05/04/17 08:11 10 MG Miscellaneous (Iv Fluids Completed) 1 ea PRN PRN N/A 05/03/17 18:00 05/03/18 17:59
== END 2017-05-04 13:16 | disposition home or self-care (01) ==
LOC: C.EDB 14:16 → C.2T 17:25 → ENRESERV 17:57
PROVIDERS: ADMIT Hospitalist; ATTEND Internal Medicine
DX: R07.9 Chest pain, unspecified (principal); Z79.899 Other long term (current) drug therapy; E03.9 Hypothyroidism, unspecified; Z98.51 Tubal ligation status; Z79.82 Long term (current) use of aspirin; F17.200 Nicotine dependence, unspecified, uncomplicated; Z80.3 Family history of malignant neoplasm of breast; Z80.0 Family history of malignant neoplasm of digestive organs; Z80.6 Family history of leukemia; Z82.49 Family history of ischemic heart disease and other diseases of the circulatory system